=== PATIENT | female | born 1985 | race Caucasian/White ===

== ENCOUNTER 2021-10-02 15:09 | Emergency (ER) | payer OTHER, SELFPAY ==
[2021-10-02 15:21] VITALS: BP 142/96; PULSE 86; RESP 16; TEMP 36.8; O2SAT 99; BMI 21.1
--- NOTE | 2021-10-02 16:23 | PC.NURSE ---
20/30 vision in R eye. 20/20 both together
[2021-10-02] MEDS: PROPARACAINE 0.5% OPHTH SOL 1 DROPS EYE-RIGHT (16:39)
[2021-10-02] MEDS: KETOROLAC 30 MG/ML VIAL 15 MG IM (17:16)
[2021-10-02 17:32] VITALS: BP 153/79; PULSE 80; RESP 16; O2SAT 97
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
== END 2021-10-02 17:33 | disposition home or self-care (01) ==
PROVIDERS: Emergency Provider Nurse Practitioner Critical Care Medicine
DX: S06.0X0A Concussion without loss of consciousness, initial encounter (principal); S05.8X1A Other injuries of right eye and orbit, initial encounter; W51.XXXA Accidental striking against or bumped into by another person, initial encounter; Y99.0 Civilian activity done for income or pay
CPT/HCPCS: 96372; 99283; J1885